=== PATIENT | female | born 1980 | race Caucasian/White ===

== ENCOUNTER 2023-06-24 08:12 | Emergency (ER) | payer OTHER ==
[2023-06-24 09:10] LABS: BASOPHILS ABSOLUTE AUTO 0.06 10^3/uL (0.00-0.10); BASOPHILS PERCENT AUTO 0.5 % (0.0-1.0); EOSINOPHILS ABSOLUTE AUTO 0.47 10^3/uL (0.10-0.30); HEMATOCRIT 35.3 % (37.0-47.0); HEMOGLOBIN 11.1 g/dL (12.0-16.0); IMMATURE GRAN ABSOLUTE AUTO 0.02 10^3/uL (0.00-0.50); IMMATURE GRAN PERCENT AUTO 0.2 % (0.0-5.0); LYMPHOCYTES ABSOLUTE AUTO 3.31 10^3/uL (1.00-4.00); MEAN CORPUSCULAR HGB CONC 31.4 g/dL (32.0-36.0); MEAN CORPUSCULAR VOLUME 76.2 fL (82.0-92.0); MEAN PLATELET VOLUME 9.2 fL (7.4-10.4); MONOCYTES ABSOLUTE AUTO 0.72 10^3/uL (0.10-0.80); MONOCYTES PERCENT AUTO 6.1 % (2.0-8.0); NEUTROPHILS ABSOLUTE AUTO 7.23 10^3/uL (2.50-7.00); NEUTROPHILS PERCENT AUTO 61.2 % (50.0-70.0); PLATELET COUNT,PLT 484 10^3/uL (150-400); RED BLOOD CELL COUNT 4.63 10^6/uL (3.80-5.50); RED CELL DISTRIBUTION WIDTH 16.7 % (11.5-14.5); WHITE BLOOD CELL COUNT,WBC 11.81 10^3/uL (5.00-10.00)
[2023-06-24 09:33] LABS: APPEARANCE,URINE CLEAR (CLEAR); BILIRUBIN,URINE NEGATIVE (NEGATIVE); COLOR,URINE YELLOW (YELLOW); GLUCOSE,URINE NEGATIVE (NEGATIVE); KETONES,URINE NEGATIVE (NEGATIVE); LEUKOCYTE ESTERASE,URINE NEGATIVE (NEGATIVE); NITRITE,URINE NEGATIVE (NEGATIVE); OCCULT BLOOD,URINE SMALL (NEGATIVE); PROTEIN,URINE NEGATIVE (NEGATIVE); UROBILINOGEN,URINE 0.2 E.U./dL (0.2-1.0)
[2023-06-24 09:34] LABS: BACTERIA,URINE RARE /HPF (NONE TO FEW); WBC,URINE 0-5 /HPF (0-5)
[2023-06-24 09:34] LABS: ALBUMIN 3.17 g/dL (3.40-5.00); ANION GAP 9.5 mmol/L (5-15); BILIRUBIN TOTAL 0.1 mg/dL (0.2-1.0); CALCIUM 8.9 mg/dL (8.7-10.3); CARBON DIOXIDE,CO2 29.1 mmol/L (21.0-32.0); CREATININE 0.55 mg/dL (0.51-1.17); EST CRCL DRUG DOSING (CG) 112.72 mL/min; POTASSIUM,K 3.6 mmol/L (3.5-5.1); PROTEIN TOTAL,TP 6.9 g/dL (6.4-8.2); TSH ULTRASENSITIVE 2.416 uIU/mL (0.340-4.820)
[2023-06-24 09:37] LABS: EPITHELIAL CELLS,URINE FEW /LPF
== END 2023-06-24 10:07 | disposition home or self-care (01) ==
LOC: KA.ED 08:12
DX: L29.9 Pruritus, unspecified (principal)
CPT/HCPCS: 36415; 80053; 81001; 84443; 85025; 99283

== ENCOUNTER 2023-07-12 22:26 | Emergency (ER) | payer OTHER ==
[2023-07-12] MEDS ORDERED: Ketorolac 30 MG/ML SDV IM ONE (23:03)
== END 2023-07-12 23:25 | disposition home or self-care (01) ==
LOC: KA.ED 22:26
DX: S43.52XA Sprain of left acromioclavicular joint, initial encounter (principal); F17.210 Nicotine dependence, cigarettes, uncomplicated; X50.0XXA Overexertion from strenuous movement or load, initial encounter; Y92.89 Other specified places as the place of occurrence of the external cause; Y99.0 Civilian activity done for income or pay
CPT/HCPCS: 73030-LT; 96372; 99283; J1885